=== PATIENT | male | born 1975 | race Caucasian/White ===

== ENCOUNTER 2018-09-27 16:18 | Emergency (ER) | payer OTHER ==
--- NOTE | 2018-09-27 16:47 | EDM.PDOC ---
ED HPI GENERAL MEDICAL PROBLEM - General Chief Complaint: Upper Extremity Injury/Pain Stated Complaint: RT HAND INJURY Time Seen by Provider: 09/27/18 16:41 Source of Information: Reports: Patient History Limitations: Reports: No Limitations - History of Present Illness INITIAL COMMENTS - FREE TEXT/NARRATIVE: 43-year-old male presents to the ED with an acute injury to his right hand. 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 He states he often Some on the top of his head with the right hand to help him keep his head down. Unfortunately on this occasion the horse reared up his head and caused blunt force trauma to the ulnar aspect of his right hand. He has pain and swelling over the fifth meta-carpal. Of note the patient is right-hand dominant. He denies any other injuries. Injury occurred about an hour ago .There are no open wounds. Onset: Today Onset Date: 09/27/18 Onset Time: 15:20 Duration: Hour(s): (One hour ago) Location: Reports: Upper Extremity, Right (Right ulnar aspect of the hand.) Quality: Reports: Ache, Throbbing Severity: Moderate Improves with: Reports: None Worsens with: Reports: None Context: Reports: Trauma (Blunt force trauma from a horse head striking him in the ulnar aspect of his right hand.). 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) (None.) Right Hand Pain Score (Numeric/FACES): 4 - Related Data Allergies Allergy/AdvReac Type Severity Reaction Status Date / Time No Known Allergies Allergy Verified 09/27/18 16:26 Home Meds: Home Meds oxyCODONE HCl/Acetaminophen [Percocet 5-325 mg Tablet] 1 - 2 each PO Q4H PRN # 12 tablet 09/27/18 [Rx] Past Medical History - Infectious Disease History Infectious Disease History: Reports: Chicken Pox - Past Surgical History HEENT Surgical History: Reports: Oral Surgery, Other (See Below) Other HEENT Surgeries/Procedures: sinus surgery Dermatological Surgical History: Reports: Other (See Below) Social & Family History - Family History Family Medical History: Noncontributory - Tobacco Use Smoking Status *Q: Never Smoker - Caffeine Use Caffeine Use: Reports: None - Recreational Drug Use Recreational Drug Use: No - Living Situation & Occupation Living situation: Reports: Occupation: Employed Review of Systems - Review of Systems Review Of Systems: See Below Constitutional: Reports: No Symptoms Eyes: Reports: No Symptoms Ears: Reports: No Symptoms Nose: Reports: No Symptoms Mouth/Throat: Reports: No Symptoms Respiratory: Reports: No Symptoms Cardiovascular: Reports: No Symptoms GI/Abdominal: Reports: No Symptoms Genitourinary: Reports: No Symptoms Musculoskeletal: Reports: No Symptoms Skin: Reports: No Symptoms Neurological: Reports: No Symptoms Psychiatric: Reports: No Symptoms ED EXAM, GENERAL - Physical Exam Exam: See Below Exam Limited By: No Limitations General Appearance: Alert, WD/WN, No Apparent Distress Extremities: Other (Examination was limited to his right hand. He has swelling mid shaft of the ulnar aspect of his right fifth metacarpal suggestive of a likely fracture. There is no bleeding on the plantar palmar surface of the hand but at this time. He is unable to make a full fist.) Neurological: Alert, Oriented, CN II-XII Intact, Normal Cognition Psychiatric: Normal Affect, Normal Mood Skin Exam: Warm, Dry, Intact, Normal Color, No Rash Course - Vital Signs Last Recorded V/S: Last Vital Signs Temp 36.8 C 09/27/18 16:27 Pulse 66 09/27/18 16:27 Resp 16 09/27/18 16:27 BP 127/81 09/27/18 16:27 Pulse Ox 98 09/27/18 16:27 - Orders/Labs/Meds Orders: Active Orders 24 hr Category Date Time Status Hand Comp Min 3V Rt [CR] Stat Exams 09/27/18 16:41 Taken Meds: Medications Discontinued Medications Generic Name Dose Route Start Last Admin Trade Name Karin PRN Reason Stop Dose Admin Ibuprofen 600 mg 09/27/18 17:43 09/27/18 17:47 Motrin PO 09/27/18 17:44 600 mg ONETIME ONE Administration - Radiology Interpretation Free Text/Narrative:: 43-year-old male attends the ED after suffering blunt trauma to the ulnar aspect of his right hand. Of course that he was riding reared up it's head striking him hard on the ulnar aspect of his right hand. Of note the patient is right-hand dominant. Patient has significant swelling mid shaft of the right fifth metacarpal suggests fracture. Plan x-ray right hand time to be done - Re-Assessments/Exams Free Text/Narrative Re-Assessment/Exam: 09/27/18 17:44 x-ray of the right hand reveals a midshaft fracture of the right fifth metacarpal. There is slight angulation. He will benefit from surgical pinning. Plan he will be placed in an ulnar gutter Orthoplast splint at this time. I will make arrangements for him to see Dr. Gu-hand surgeon in [place] early next week Saturday or Saturday for definitive orthopedic management. I will give him Motrin 600 mg by mouth now. I will write a prescription for Percocet tabs 5/325 mg 12 tablets to be available for pain relief over the next few days particularly at nighttime. 09/27/18 18:30: Patient is been placed in an ulnar gutter Orthoplast splint to immobilize fourth and fifth fingers until follow-up with orthopedic surgeon in [place]. He has to take his son to [facility] on in [place] on the afternoon of Saturday, September 29. This is to see who is following up his 16-year-old male child with an elbow fracture. I will therefore send his x-rays of his right hand to [facility] and send a fax copy of my history and physical exam to Dr. Redman and he can decide whether or not he wishes to pursue pinning of this fracture are referred to one of his partners such as Dr. Gu. Departure - Departure Time of Disposition: 18:16 Disposition: Home, Self-Care 01 Condition: Fair Clinical Impression: Fracture, metacarpal shaft Qualifiers: Encounter type: initial encounter Metacarpal bone: fifth Fracture type: closed Fracture alignment: displaced Laterality: right Qualified Code(s): S62.326A - Displaced fracture of shaft of fifth metacarpal bone, right hand, initial encounter for closed fracture - Discharge Information *PRESCRIPTION DRUG MONITORING PROGRAM REVIEWED*: Not Applicable *COPY OF PRESCRIPTION DRUG MONITORING REPORT IN PATIENT FILI: Not Applicable Prescriptions: oxyCODONE HCl/Acetaminophen [Percocet 5-325 mg Tablet] 1 - 2 each PO Q4H PRN # 12 tablet PRN Reason: pain relief. Instructions: Cast or Splint Care, Adult, [id number], Metacarpal Fracture Referrals: Fer Deluca MD [Primary Care Provider] - Forms: ED Department Discharge Additional Instructions: Evaluation in the emergency room today in regards to acute injury to the ulnar aspect of your right hand. This occurred from blunt force trauma from a horse's head. X-rays confirm a fracture through the midshaft of the right fifth metacarpal bone of your hand. It is angulated enough that it is going to require surgical pinning to stabilize his fracture and help it heal a bit faster. You were placed in an ulnar gutter Orthoplast splint to protect this area and stabilize the fracture until it can be surgically pinned. I will send your history and physical exam as well as her x-rays to Dr. Gu at [facility] in [place]. I will have you call their office on Saturday after 8:00. The number is [phone]. They should then arrange appropriate appointment time for you to come down and visit with Dr. Gu or Dr Redman with a view to having it surgically pinned the following day. Therefore plan on spending the night and having it done first thing on Saturday as is often is what occurs. Motrin 6 mg every 6 hours needed for pain relief. I did write a prescription for a few Percocet tablets 5/325 mg strength which you may take one or 2 tablets every 4 hours for pain not controlled by Motrin alone. Elevate the hand is much as possible above the level of your heart for the next 2 days. - My Orders Last 24 Hours: My Active Orders 09/27/18 16:41 Hand Comp Min 3V Rt [CR] Stat - Assessment/Plan Last 24 Hours: My Active Orders 09/27/18 16:41 Hand Comp Min 3V Rt [CR] Stat
[2018-09-27] MEDS ORDERED: Ibuprofen 600 MG Tab PO ONE (17:43)
--- NOTE | 2018-09-28 08:26 | CR ---
Right hand: Four views of the right hand were obtained. Comparison: No prior hand exam. Mildly displaced fracture is seen within the mid and proximal shaft of the fifth metacarpal. Slight foreshortening is seen with displacement up to 5 mm. Soft tissue swelling is noted. No additional fracture, dislocation or other bony abnormality is seen. Impression: 1. Slightly displaced and foreshortened fracture involving the shaft of the fifth metacarpal. 2. Soft tissue swelling. Diagnostic code #3
== END 2018-09-27 18:30 | disposition home or self-care (01) ==
LOC: JD.ED 16:18 → EDSEX 16:18 → JD.ED 18:30
DX: S62.326A Displaced fracture of shaft of fifth metacarpal bone, right hand, initial encounter for closed fracture (principal); V80.919A Animal-rider injured in unspecified transport accident, initial encounter; Y93.52 Activity, horseback riding
CPT/HCPCS: 29125; 73130; 99283; A9270

== ENCOUNTER 2019-02-21 01:50 | Emergency (ER) | payer OTHER ==
[2019-02-21] MEDS ORDERED: Proparacaine 0.5% Ophth Soln 15 ML Bottle EYERT STA (02:04)
[2019-02-21] MEDS ORDERED: Fluorescein 0.6 MG Ophth Strip EYERT ONE (02:05)
[2019-02-21] MEDS ORDERED: Erythromycin Base 0.5% Ophth Oint 1 GM Tube EYERT STA (02:24)
--- NOTE | 2019-02-21 02:29 | EDM.PDOC ---
ED HPI GENERAL MEDICAL PROBLEM - General Chief Complaint: Eye Problems Stated Complaint: piece of dirt in right eye Time Seen by Provider: 02/21/19 02:00 Source of Information: Reports: Patient History Limitations: Reports: No Limitations - History of Present Illness INITIAL COMMENTS - FREE TEXT/NARRATIVE: Mr. 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 The patient states that he feels like there is a foreign body still in his eye. He reports both photophobia and blurry vision to the right eye. No prior right eye injury. The patient's PCP is Dr. Fer Deluca. Right Eye Pain Score (Numeric/FACES): 5 - Related Data Allergies Allergy/AdvReac Type Severity Reaction Status Date / Time No Known Allergies Allergy Verified 09/27/18 16:26 Home Meds: Home Meds oxyCODONE HCl/Acetaminophen [Percocet 5-325 mg Tablet] 1 - 2 each PO Q4H PRN # 12 tablet 09/27/18 [Rx] Past Medical History - Infectious Disease History Infectious Disease History: Reports: Chicken Pox - Past Surgical History Head Surgeries/Procedures: Reports: Craniotomy (excision of an intracranial cyst at 1 years old) HEENT Surgical History: Reports: Naso-Sinus Surgery (deviated septum), Oral Surgery (wisdom teeth extractions) Social & Family History - Family History Family Medical History: Noncontributory - Tobacco Use Smoking Status *Q: Never Smoker - Caffeine Use Caffeine Use: Reports: None - Alcohol Use Alcohol Use History: Yes Alcohol Use Frequency: Rarely - Recreational Drug Use Recreational Drug Use: No - Living Situation & Occupation Living situation: Reports: , with Spouse, with Family (2 sons) 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 ED EXAM GENERAL W FULL EYE - Physical Exam Exam: See Below Exam Limited By: No Limitations General Appearance: Alert, WD/WN, No Apparent Distress Visual Acuity (R) 20/: 20 Visual Acuity (L) 20/: 13 With Correction: No Eyelids: Right: Edema (slight), Lid Everted for Exam, Left: Normal Appearance Conjunctiva & Sclera: Right: Injected, Left: Normal Appearance Cornea Exam: Right: Corneal Abrasion (4:00 position), Examined with Flourescein Extraocular Movements: Bilateral: Intact Pupils: Normal Accommodation Pupillary Size: Bilateral: 5 mm Pupillary Reaction: Bilateral: Brisk Anterior Chamber: Bilateral: Normal Appearance Course - Vital Signs Last Recorded V/S: Last Vital Signs Temp 36.1 C 02/21/19 01:58 Pulse 65 02/21/19 01:58 Resp 16 02/21/19 01:58 BP 123/89 02/21/19 01:58 Pulse Ox 97 02/21/19 01:58 - Orders/Labs/Meds Meds: Medications Discontinued Medications Generic Name Dose Route Start Last Admin Trade Name Karin PRN Reason Stop Dose Admin Erythromycin 1 gm 02/21/19 02:24 Erythromycin 0.5% Ophth Oint EYERT 02/21/19 02:25 ONETIME STA Fluorescein Sodium 0.6 mg 02/21/19 02:05 02/21/19 02:25 Ful-Radha EYERT 02/21/19 02:06 0.6 mg ONETIME ONE Administration Proparacaine HCl 1 ml 02/21/19 02:04 02/21/19 02:25 Proparacaine 0.5% Ophth Soln EYERT 02/21/19 02:05 1 dose ONETIME STA Administration - Re-Assessments/Exams Free Text/Narrative Re-Assessment/Exam: 02/21/19 02:24 After proparacaine drops were instilled into the patient's right eye, fluorescein dye was applied. A corneal abrasion was found at approximately the 4 o'clock position, near the scleral/corneal junction, by Wood's lamp. Under slit-lamp examination, there appears to be a dilated blood vessel by the medial canthus, but no foreign body was found. I have ordered erythromycin ointment. Vanessa RN will instill it into his right eye , and give him the tube. If he continues to have pain after 3 days, I would like him to follow-up with an eye doctor. Departure - Departure Time of Disposition: 02:29 Disposition: Home, Self-Care 01 Condition: Good Clinical Impression: Right corneal abrasion - Discharge Information *PRESCRIPTION DRUG MONITORING PROGRAM REVIEWED*: Not Applicable *COPY OF PRESCRIPTION DRUG MONITORING REPORT IN PATIENT FILI: Not Applicable Referrals: Fer Deluca MD [Primary Care Provider] - Forms: ED Department Discharge Additional Instructions: You were seen in the emergency room after developing pain, sensitivity light, blurry vision, and a foreign body sensation to your right eye, after it was struck with dirt. On examination with fluorescein, a Wood's lamp, and slit lamp, you appear to have an abrasion to your cornea at about the 4 o'clock position. No foreign body was found. You have been provided with erythromycin ointment, and the nurse showed you how to instill in your eye. Instill approximately a 1 cm ribbon onto your lower eyelid up to 6 times a day, as needed for discomfort. If you are still having eye pain after 3 days, please follow-up with an eye doctor. If any other problems, please do not hesitate to return to the ER.
== END 2019-02-21 02:37 | disposition home or self-care (01) ==
LOC: JD.ED 01:50
DX: S05.01XA Injury of conjunctiva and corneal abrasion without foreign body, right eye, initial encounter (principal); X58.XXXA Exposure to other specified factors, initial encounter
CPT/HCPCS: 99283; A9270

== ENCOUNTER 2020-12-26 18:26 | Emergency (ER) | payer OTHER ==
--- NOTE | 2020-12-26 19:13 | EDM.PDOC ---
ED HPI GENERAL MEDICAL PROBLEM - General Chief Complaint: Lower Extremity Injury/Pain Stated Complaint: LT THIGH INJURY (KICKED BY HORSE) Time Seen by Provider: 12/26/20 18:58 Source of Information: Reports: Patient History Limitations: Reports: No Limitations - History of Present Illness INITIAL COMMENTS - FREE TEXT/NARRATIVE: The patient presents with left leg pain. The patient said 4 days ago he got kicked by a horse in the left outer thigh. It knocked him over. He had some redness to that area right away and now he has some bruising and swelling and mild pain. Today he developed pain to his lower leg with maybe some mild edema. He has no history of DVTs or PEs. He has no chest pain or shortness of breath. Onset: Sudden Duration: Day(s): (4) Location: Reports: Lower Extremity, Left Quality: Reports: Sharp Severity: Moderate Improves with: Reports: Immobilization Worsens with: Reports: Movement Context: Reports: Trauma (Kicked by a horse) Associated Symptoms: Reports: No Other Symptoms Left Leg Pain Score (Numeric/FACES): 5 - Related Data Allergies Allergy/AdvReac Type Severity Reaction Status Date / Time No Known Allergies Allergy Verified 12/26/20 18:49 Home Meds: Home Meds . [Unable to Verify Home Med List] 12/26/20 [History] Past Medical History - Infectious Disease History Infectious Disease History: Reports: Chicken Pox - Past Surgical History Head Surgeries/Procedures: Reports: Craniotomy HEENT Surgical History: Reports: Naso-Sinus Surgery, Oral Surgery Other HEENT Surgeries/Procedures: sinus surgery Dermatological Surgical History: Reports: Other (See Below) Social & Family History - Family History Family Medical History: No Pertinent Family History - Tobacco Use Tobacco Use Status *Q: Never Tobacco User - Caffeine Use Caffeine Use: Reports: None - Recreational Drug Use Recreational Drug Use: No - Living Situation & Occupation Living situation: Reports: , with Spouse, with Family (2 sons) 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) Review of Systems - Review of Systems Review Of Systems: See Below Constitutional: Reports: No Symptoms Eyes: Reports: No Symptoms Ears: Reports: No Symptoms Nose: Reports: No Symptoms Mouth/Throat: Reports: No Symptoms Respiratory: Reports: No Symptoms Cardiovascular: Reports: No Symptoms GI/Abdominal: Reports: No Symptoms Genitourinary: Reports: No Symptoms Musculoskeletal: Reports: Other (Left leg pain and swelling) ED EXAM, GENERAL - Physical Exam Exam: See Below Exam Limited By: No Limitations General Appearance: Alert, No Apparent Distress Ears: Normal External Exam Nose: Normal Inspection Head: Atraumatic, Normocephalic Neck: Normal Inspection Respiratory/Chest: No Respiratory Distress Extremities: Other (Ecchymosis and edema to the left upper thigh with mild pain upon palpation. Mild edema and pain to the posterior upper left leg. Good sensation and pulses distally.) Course - Vital Signs Last Recorded V/S: Last Vital Signs Temp 96.6 F L 12/26/20 18:45 Pulse 77 12/26/20 18:45 Resp 16 12/26/20 18:45 BP 153/89 H 12/26/20 18:45 Pulse Ox 95 12/26/20 18:45 - Re-Assessments/Exams Free Text/Narrative Re-Assessment/Exam: 12/26/20 19:13 I have ordered an US of his left leg. 12/26/20 20:11 The US shows thrombophlebitis within a superficial vein within the left calf. Left popliteal cyst. No findings of deep venous thrombosis within the left lower extremity or within the right common femoral vein. I will have him take antiinflammatories and compression stockings. Departure - Departure Time of Disposition: 20:15 Disposition: Home, Self-Care 01 Condition: Good Clinical Impression: Superficial thrombophlebitis of left leg - Discharge Information *PRESCRIPTION DRUG MONITORING PROGRAM REVIEWED*: Not Applicable *COPY OF PRESCRIPTION DRUG MONITORING REPORT IN PATIENT FILI: Not Applicable Referrals: Fer Deluca MD [Primary Care Provider] - 1 Week Forms: ED Department Discharge Additional Instructions: Take motrin or aleve for a couple weeks. Use the compression stocking for a week or two and follow up with Dr Brown within a week. Please return if you are worse such as more pain or swelling in your leg, chest pain or shortness of breath. Sepsis Event Note (ED) - Evaluation Sepsis Screening Result: No Definite Risk - Focused Exam Vital Signs: Vital Signs Temp Pulse Resp BP Pulse Ox 12/26/20 18:45 96.6 F L 77 16 153/89 H 95
--- NOTE | 2020-12-26 19:57 | US ---
Left lower extremity deep venous ultrasound: Duplex and color Doppler evaluation was obtained of the left common femoral, proximal greater saphenous, superficial femoral, popliteal, posterior tibial and peroneal veins. Right common femoral vein was also evaluated. Comparison: No prior venous imaging is available. Findings: Deep veins show normal phasic flow, augmentation and compression. There is a popliteal cyst being seen measuring 3.5 x 1.7 x 3.1 cm. There is a superficial vein within the left calf which shows evidence of thrombus compatible with thrombophlebitis. Impression: 1. Thrombophlebitis within a superficial vein within the left calf. 2. Left popliteal cyst. 3. No findings of deep venous thrombosis within the left lower extremity or within the right common femoral vein. Diagnostic code #3
== END 2020-12-26 20:29 | disposition home or self-care (01) ==
LOC: JD.ED 18:26
DX: I80.02 Phlebitis and thrombophlebitis of superficial vessels of left lower extremity (principal)
CPT/HCPCS: 93971-26-LT; 93971-LT; 99283; 99283-25

== ENCOUNTER 2022-03-18 12:38 | Emergency (ER) | payer SELFPAY ==
[2022-03-18] MEDS ORDERED: HYDROmorphone 1 MG/ML Syringe IM ONE (13:13)
== END 2022-03-18 14:30 | disposition home or self-care (01) ==
LOC: JD.ED 12:38
DX: S43.102A Unspecified dislocation of left acromioclavicular joint, initial encounter (principal); V80.010A Animal-rider injured by fall from or being thrown from horse in noncollision accident, initial encounter
CPT/HCPCS: 73000; 73030; 96372; 99283; J1170

== ENCOUNTER 2024-05-06 15:46 | Emergency (ER) | payer BC ==
[2024-05-06] MEDS: Ketorolac 60 MG/2 ML SDV IM ONE (17:22)
== END 2024-05-06 18:00 | disposition home or self-care (01) ==
LOC: JD.ED 15:46
DX: S93.402A Sprain of unspecified ligament of left ankle, initial encounter (principal); Z79.51 Long term (current) use of inhaled steroids; W55.12XA Struck by horse, initial encounter
CPT/HCPCS: 73590-26-LT; 73590-LT; 73610-26-LT; 73610-LT; 99283

== ENCOUNTER 2024-12-16 | Emergency (ER) | payer BC, OTHER ==
[2024-12-16] MEDS ORDERED: Sodium Chloride 0.9% 10 ML Syringe FLUSH PRN (00:17)
[2024-12-16 00:23] LABS: BASOPHILS ABSOLUTE AUTO 0.1 K/mm3 (0.0-0.2); BASOPHILS PERCENT AUTO 0.4 % (0.0-1.0); EOSINOPHILS ABSOLUTE AUTO 0.2 K/mm3 (0.0-0.4); EOSINOPHILS PERCENT AUTO 0.8 % (0.0-6.0); IMMATURE GRAN ABSOLUTE AUTO 0.18 K/mm3 (0.00-0.05); IMMATURE GRAN PERCENT AUTO 0.9 % (0.0-0.4); LYMPHOCYTES ABSOLUTE AUTO 2.1 K/mm3 (1.0-4.8); LYMPHOCYTES PERCENT AUTO 10.7 % (24.0-44.0); MEAN PLATELET VOLUME 9.6 fl (9.4-12.4); MONOCYTES ABSOLUTE AUTO 1.6 K/mm3 (0.0-0.8); MONOCYTES PERCENT AUTO 8.0 % (0.0-8.0); NEUTROPHILS ABSOLUTE AUTO 15.8 K/mm3 (1.8-7.7); NEUTROPHILS PERCENT AUTO 79.2 % (41.0-71.0); NRBC ABSOLUTE 0.00 (0.00-0.02); NRBC PERCENT 0.0 % (0.0-0.2); PLATELET COUNT,PLT 251 K/mm3 (150-400); RED BLOOD CELL COUNT 5.45 M/mm3 (4.52-5.90); WHITE BLOOD CELL COUNT,WBC 19.89 K/mm3 (3.9-11.3)
[2024-12-16 00:50] LABS: A/G RATIO 1.1 (1-2); ALANINE AMINOTRANSFERASE,ALT 28.0 U/L (16-63); ASPARTATE AMNIOTRANSFERASE,AST 18.0 U/L (15-37); BILIRUBIN TOTAL 0.3 mg/dL (0.2-1.0); BLOOD UREA NITROGEN,BUN 16.0 mg/dL (7-18); CARBON DIOXIDE,CO2 29.0 mEq/L (21-32); CHLORIDE,CL 101.0 mEq/L (98-107); CREATININE 0.9 mg/dL (0.7-1.3); EST CRCL DRUG DOSING (CG) 109.74 mL/min; ESTIMATED GFR 103.0 mL/min (>60); GLUCOSE RANDOM 119.0 mg/dL (70-99); POTASSIUM,K 3.7 mEq/L (3.5-5.1); PROTEIN TOTAL,TP 7.8 g/dl (6.4-8.2); SODIUM,NA 138.0 mEq/L (136-145); TROPONIN I HIGH SENSITIVITY 6.0 pg/mL (<=76)
[2024-12-16] MEDS: Ketorolac 15 MG/ML SDV IVPUSH ONE (02:35)
== END 2024-12-16 02:50 | disposition home or self-care (01) ==
LOC: JD.ED
DX: S22.42XA Multiple fractures of ribs, left side, initial encounter for closed fracture (principal); Z79.899 Other long term (current) drug therapy; V80.010A Animal-rider injured by fall from or being thrown from horse in noncollision accident, initial encounter
CPT/HCPCS: 36415; 71250; 80053; 83690; 84484; 85025; 93005; 96374; 96375; 96376; 99284; J1171; J1885